=== PATIENT | female | born 1970 | race Caucasian/White ===

== ENCOUNTER 2024-05-22 21:43 | Inpatient (IN) | payer OTHER ==
[2024-05-22] MEDS ORDERED: Ondansetron PF 4 MG/2 ML Vial IVP PRN (23:54)
[2024-05-22] MEDS ORDERED: Nitroglycerin 0.4 MG TAB (25 Tab Bottle) SL PRN (23:54)
[2024-05-23 01:15] VITALS: BMI 26.2
[2024-05-23 01:36] LABS: Troponin I Less than 0.010 ng/mL (< 0.028)
[2024-05-23 05:18] LABS: #Basophils 0.07 10x3/uL (0.0-0.2); %Basophils 0.9 % (0.0-1.0); %Eosinophils 2.6 % (0.0-10.0); %Lymphocytes 43.3 % (21.0-51.0); %Monocytes 5.1 % (0.0-10.0); Hematocrit 41.1 % (36.0-47.0); Hemoglobin 14.3 g/dL (12.0-16.0); Mean Corpuscular HGB CONC 34.8 g/dL (32.0-36.0); Mean Corpuscular Hemoglobin 29.5 pg (27.0-31.0); Mean Corpuscular Volume 84.9 fL (78.0-98.0); Mean Platelet Volume 10.6 fL (7.4-10.4); Platelet Count 223 10x3/uL (130-400); RBC Distribution Width 12.9 % (11.5-14.5); Red Blood Cell (RBC) Count 4.84 mill/uL (4.20-5.40)
[2024-05-23 05:34] LABS: Anion Gap 13 mmol/L (10-20); BUN (Urea Nitrogen) 9 mg/dL (9.8-20.1); Calc. Creatinine Clearance 105 mL/min (70-130); Calcium 8.8 mg/dL (7.8-10.44); Carbon Dioxide 22 mmol/L (22-29); Cardiac Risk 3.4 (Less than 4.5); Chloride 111 mmol/L (98-107); Cholesterol 160 mg/dl (< 200 Desired); Estimated GFR 96; Glucose 89 mg/dL (70-105); HDL Cholesterol 47 mg/dL (>60 Neg Risk); LDL Cholesterol, Calculated 99 mg/dL; Potassium 3.5 mmol/L (3.5-5.1); Sodium 142 mmol/L (136-145); Triglycerides 72 mg/dL (Less than 150)
[2024-05-23 06:25] LABS: Troponin I Less than 0.010 ng/mL (< 0.028)
[2024-05-23] MEDS: Acetaminophen 325 MG TAB PO PRN (08:20)
[2024-05-23] MEDS ORDERED: Regadenoson 0.4 MG/5 ML SYRINGE ONE (11:13)
[2024-05-23] MEDS: NIFEdipine XL 30 MG ER.TAB PO SCH (13:21)
[2024-05-23] MEDS: hydrALAZINE 20 MG/ML VIAL SLOW IVP PRN (13:23)
[2024-05-24] MEDS: NIFEdipine XL 60 MG ER.TAB PO SCH (08:59)
[2024-05-24 09:20] LABS: #Basophils 0.05 10x3/uL (0.0-0.2); %Basophils 0.8 % (0.0-1.0); %Eosinophils 2.6 % (0.0-10.0); %Lymphocytes 32.4 % (21.0-51.0); %Monocytes 4.9 % (0.0-10.0); %Neutrophils 59.1 % (42.0-75.0); Hematocrit 44.6 % (36.0-47.0); Hemoglobin 15.5 g/dL (12.0-16.0); Mean Corpuscular HGB CONC 34.8 g/dL (32.0-36.0); Mean Corpuscular Hemoglobin 29.4 pg (27.0-31.0); Mean Corpuscular Volume 84.5 fL (78.0-98.0); Mean Platelet Volume 11.4 fL (7.4-10.4); Platelet Count 236 10x3/uL (130-400); RBC Distribution Width 13.1 % (11.5-14.5); Red Blood Cell (RBC) Count 5.28 mill/uL (4.20-5.40)
[2024-05-24 09:37] LABS: Anion Gap 12 mmol/L (10-20); BUN (Urea Nitrogen) 11 mg/dL (9.8-20.1); Calc. Creatinine Clearance 117 mL/min (70-130); Calcium 8.8 mg/dL (7.8-10.44); Carbon Dioxide 20 mmol/L (22-29); Chloride 113 mmol/L (98-107); Estimated GFR 105; Glucose 108 mg/dL (70-105); Potassium 3.7 mmol/L (3.5-5.1); Sodium 141 mmol/L (136-145)
[2024-05-24 11:49] VITALS: BP 133/76; TEMP 97.7
== END 2024-05-24 13:17 | disposition home or self-care (01) | DRG 305 ==
LOC: OBS 23:18 → OBSVTOIN 05-23 15:40
PROVIDERS: ADMIT Internal Medicine; ATTEND Family Medicine
DX: I16.0 Hypertensive urgency (principal); I10 Essential (primary) hypertension; F17.210 Nicotine dependence, cigarettes, uncomplicated; T46.5X6A Underdosing of other antihypertensive drugs, initial encounter; Z90.710 Acquired absence of both cervix and uterus; Z90.49 Acquired absence of other specified parts of digestive tract; Z91.148 Patient's other noncompliance with medication regimen for other reason
CPT/HCPCS: 36415; 78452; 80048; 80061; 84443; 84484; 85025; 93017; A9502; G0378; J0360; J2785